=== PATIENT | male | born 1970 | race African-American/Black ===

== ENCOUNTER 2017-01-19 13:41 | Emergency (ER) | payer OTHER ==
[~2017-01-19] VITALS: Ht 182.9 cm; Wt 104.3 kg
[~2017-01-19 13:41] MED LIST: ANTIBIOTIC; CIPRO PO; FLAGYL PO; LEVAQUIN PO; NORCO 5/325 TAB1 TAB PO; ORUDIS75 M1 PO; PEN-VEE K PO; PHENERGAN PO; VICODIN 5/1 TAB 5/50 PO; VICODIN 5/500 T1 TAB PO
== END 2017-01-19 14:49 | disposition home or self-care (01) ==
LOC: CED 13:41
DX: G44.009 Cluster headache syndrome, unspecified, not intractable (principal); F17.200 Nicotine dependence, unspecified, uncomplicated
CPT/HCPCS: 99284

== ENCOUNTER 2017-01-31 13:24 | Emergency (ER) | payer OTHER ==
[~2017-01-31] VITALS: Ht 182.9 cm; Wt 104.3 kg
--- NOTE | ~2017-01-31 | CT71 ---
[facility] A Service of [facility] RADIOLOGY TEXT RESULTS PATIENT: MEL HAWTHORNE LOCATION: [facility] : [birth year] UNIT #: [id number] AGE: [address]: Blas Ruiz MD SEX: M ORDER DR: [id number] [facility]. [place], [place] [address] [id number] MR#: [id number] Acc #: [id number] NAME: MEL HAWTHORNE. : 1970 SEX: M STUDY DATE/TIME: 01/31/2017 14:34 UNIT: [facility] ROOM: STUDY DESCRIPTION: CT Head Wo Contrast Attending Physician: Blas Ruiz M.D. Ordering Physician: Jaxon Hanson M.D. Primary Care Physician: [facility]. MEDICAL IMAGING REPORT This report is preliminary unless electronic signature is present EXAM Head CT no contrast, 01/31/2017 INDICATION 46-year-old male with headache today on the right, onset of symptoms this morning. No known injury. History of hypertension and neck fusion procedure. TECHNIQUE Noncontrast CT brain was performed. This CT exam was performed with one or more of the following radiation dose reduction techniques: automatic exposure control, adjustment of mA and/or kV according to patient size, and iterative reconstruction. COMPARISON No comparisons. FINDINGS CT BRAIN: Sulci and ventricles unremarkable. No midline shift. No evidence of acute intracranial hemorrhage. There is no mass, mass effect or edema to suggest acute infarct and no extraaxial fluid collections are identified. Globes intact. Bones intact. Sinuses are clear. IMPRESSION Negative noncontrast CT of the brain. Dictated by... Gregory Arteaga M.D. THIS IS AN ELECTRONICALLY VERIFIED REPORT Gregory Arteaga M.D. at 02/01/2017 3:04 PM ARTHUR/jayesh [facility] A Service of [facility] RADIOLOGY TEXT RESULTS PATIENT: MEL HAWTHORNE LOCATION: [facility] : [birth year] UNIT #: [id number] AGE: [address]: Blas Ruiz MD SEX: M ORDER DR: TD: 02/01/2017 14:00 JOB #: [id number] MEDICAL IMAGING REPORT Page 1 of 1 COPY
== END 2017-01-31 16:11 | disposition home or self-care (01) ==
LOC: CED 13:24
DX: J32.9 Chronic sinusitis, unspecified (principal); I10 Essential (primary) hypertension; F17.200 Nicotine dependence, unspecified, uncomplicated
CPT/HCPCS: 70450; 99284